=== PATIENT | male | born 1965 | race Caucasian/White ===

== ENCOUNTER 2019-11-21 08:34 | Outpatient (CLI) | payer OTHER, SELFPAY ==
[2019-11-21 08:54] LABS: Hematocrit 48.4 % (42.0-52.0); Hemoglobin 15.2 g/dL (14.0-18.0); Mean Corpuscular HGB Conc 31.4 g/dl (32-36); Mean Corpuscular Hemoglobin 27.3 pg (26-34); Mean Corpuscular Volume 86.9 fl (80-100); Mean Platelet Volume 10.7 fl (7.4-10.4); Platelet Count Result 283 k/mm3 (150-375); Red Blood Count 5.57 M/mm3 (4.6-6.20); Red Cell Distribution Width 17.9 % (11.5-14.5); White Blood Count 6.5 K/mm3 (4.5-10.0)
[2019-11-21 08:56] LABS: Add Urine Microscopic? NO; Appearance Urine Clear (Clear); Bilirubin Urine Negative (Negative); Blood Urine Negative (Negative); Color Urine Yellow (Yellow); Glucose Urine UA Negative (Negative); Ketones Urine Negative (Negative); Leukocyte Esterase Ur Negative LEU/UL (Negative); Nitrate Urine Negative (Negative); Protein Urine Negative (Negative); Urobilinogen Urine Negative mg/dL (<2.0)
[2019-11-21 09:05] LABS: Alanine Aminotransferase 43 U/L (4-50); Albumin Level 4.2 g/dL (3.5-5.1); Alkaline Phosphatase 63 U/L (38-126); Aspartate Amino Transferase 33 U/L (17-59); Bilirubin,Total 0.6 mg/dL (0.2-1.3); Blood Urea Nitrogen 16 mg/dL (9-20); CRP 0.7 mg/dL (<1.0); Calcium 8.8 mg/dL (8.4-10.2); Carbon Dioxide 29 mmol/L (22-30); Chloride 98 mmol/L (98-107); Estimated Glomerular Filt Rate > 60; Glucose 192 mg/dL (75-110); Potassium 4.5 mmol/L (3.4-5.0); Sodium 135 mmol/L (137-145)
== END 2019-11-21 08:35 | disposition home or self-care (01) ==
PROVIDERS: PCP Internal Medicine; Visit Provider Internal Medicine
DX: M05.79 Rheumatoid arthritis with rheumatoid factor of multiple sites without organ or systems involvement (principal); M19.90 Unspecified osteoarthritis, unspecified site
CPT/HCPCS: 36415; 80053; 81003; 85027; 86140

== ENCOUNTER 2020-01-20 00:28 | Outpatient (CLI) | payer OTHER, SELFPAY ==
[2020-01-20 18:58] LABS: SARS-CoV-2 RNA PCR Negative
== END 2020-01-20 00:29 | disposition home or self-care (01) ==
LOC: ANHCOVIDDT 00:30
PROVIDERS: PCP Internal Medicine; Visit Provider Internal Medicine Gastroenterology
DX: Z01.818 Encounter for other preprocedural examination (principal)
CPT/HCPCS: 87635; C9803; U0003

== ENCOUNTER 2020-01-22 01:42 | Day surgery (SDC) | payer OTHER, SELFPAY ==
[2020-01-12 13:34] VITALS: BMI 43.8
[2020-01-22] MEDS: LACTATED RINGERS 1,000 ML 150 ML IV CONT (06:42)
[2020-01-22 06:44] VITALS: BP 125/105; PULSE 93; RESP 22; TEMP 36.9; O2SAT 90; BMI 46.5
[2020-01-22 07:28] LABS: Glucose Point of Care 196 (65-105)
[2020-01-22] MEDS: SIMETHICONE ORAL SUSPENSION 20 MG/0.3 ML 30 ML BOTTLE 0.6 ML IRRIGATION (07:52)
--- NOTE | 2020-01-22 07:57 | WPDGICN ---
Assessment and Plan Assessment and plan (1) History of colon polyps: Code(s): Z86.010 - Personal history of colonic polyps Status: Acute Assessment and Plan: Patient has a history of colon polyps 5 years ago. Plan is for colonoscopy to follow up at this time. High-fiber diet encourage. Other recommendations may be given after endoscopy. (2) Rheumatoid arthritis with rheumatoid factor of multiple sites without organ or systems involvement: Code(s): M05.79 - Rheumatoid arthritis with rheumatoid factor of multiple sites without organ or systems involvement Status: Acute (3) Diabetes type 2, controlled: Qualifiers: Diabetes mellitus intermodal dispatcher insulin use: with intermodal dispatcher use Diabetes mellitus complication status: with unspecified complications Qualified Code(s): E11.8 - Type 2 diabetes mellitus with unspecified complications; Z79.4 - buttermilk drier operator (current) use of insulin Code(s): E11.9 - Type 2 diabetes mellitus without complications Status: Acute (4) HTN (hypertension): Qualifiers: Hypertension type: essential hypertension Qualified Code(s): I10 - Essential (primary) hypertension Code(s): I10 - Essential (primary) hypertension Status: Acute GI Consult Note Consult date/time: 01/22/20 07:57 HPI: Pro Graves is a 54 year old male Seen in evaluation at the request of Dr. Margarito Brown. Patient is a history of colon polyps identified by colonoscopy 5 years ago. He returns today for follow-up colonoscopy. Current weight appetite bowel movements are normal. He denies abdominal pain. He has had no blood in his stools. His weight appetite bowel movements are normal. Family history is noncontributory. Past medical history is significant for GERD, hypertension, rheumatoid arthritis. [facility] Past Medical History Medical History Depression Generalized osteoarthritis of multiple sites GERD (gastroesophageal reflux disease) HTN (hypertension) Rheumatoid arthritis with rheumatoid factor of multiple sites without organ or systems involvement Right elbow pain Surgical History Surgical History History of carpal tunnel release Family History Family History Grandparent Diabetes mellitus Sibling Patient's sister is in good health Patient's brother is , Onset Age: 26 Family history of chronic obstructive pulmonary disease Family history of emphysema Mother Family history of chronic obstructive pulmonary disease, Onset Age: 63 Family history of emphysema, Onset Age: 63 Social History Social History Smoking status: Former smoker Second hand tobacco smoke exposure: No Smoking end date: 08/13/04 Alcohol intake: current Meds Home Medications and Allergies Home Medications Medication Instructions Recorded Confirmed Type hydrochlorothiazide 12.5 mg tablet 12.5 mg PO DAILY #30 tablet 07/07/19 01/22/20 Rx aspirin 325 mg tablet 325 mg PO DAILY tablet 07/08/19 01/22/20 History blood-glucose meter #1 each 07/08/19 Rx insulin glargine 100 unit/mL (3 80 unit SUB-Q DAILY 07/08/19 01/22/20 History mL) subcutaneous pen metformin 500 mg tablet 1,000 mg PO BID tablet 07/08/19 01/22/20 History multivitamin 1 tablet PO DAILY 07/08/19 01/12/20 History insulin aspart U-100 100 unit/mL 10 unit SUB-Q TID 07/09/19 01/22/20 History (3 mL) subcutaneous pen felodipine 5 mg tablet,extended 5 mg PO DAILY #90 tablet 08/29/19 01/22/20 Rx release 24 hr lisinopril 20 mg tablet 40 mg PO DAILY #90 tablet 08/29/19 01/22/20 Rx omeprazole 20 mg tablet,delayed 20 mg PO DAILY #90 tablet 08/29/19 01/12/20 Rx release etanercept 50 mg/mL (1 mL) 50 mg SUB-Q WEEKLY #4 ml 09/01/19 01/22/20 Rx subcutaneous cartridge
[2020-01-22 08:02] VITALS: BP 113/64; PULSE 83; RESP 20; O2SAT 100
[2020-01-22 08:12] VITALS: BP 133/89; PULSE 77; RESP 23; O2SAT 100
[2020-01-22 08:18] LABS: Glucose Point of Care 182 (65-105)
[2020-01-22 08:22] VITALS: BP 136/85; PULSE 72; RESP 25; O2SAT 94
== END 2020-01-22 08:41 | disposition home or self-care (01) ==
PROVIDERS: PCP Internal Medicine; Visit Provider Internal Medicine Gastroenterology
PROC: 0DJD8ZZ Inspection of Lower Intestinal Tract, Via Natural or Artificial Opening Endoscopic (ICD-10-PCS; CPT 45378; principal; 2020-01-22 07:30)
DX: Z12.11 Encounter for screening for malignant neoplasm of colon (principal); K64.8 Other hemorrhoids; Z86.010 Personal history of colon polyps; M05.79 Rheumatoid arthritis with rheumatoid factor of multiple sites without organ or systems involvement; E11.9 Type 2 diabetes mellitus without complications; I10 Essential (primary) hypertension; M19.90 Unspecified osteoarthritis, unspecified site; K21.9 Gastro-esophageal reflux disease without esophagitis; F32.9 Major depressive disorder, single episode, unspecified; Z87.891 Personal history of nicotine dependence; Z79.82 Long term (current) use of aspirin; Z79.84 Long term (current) use of oral hypoglycemic drugs; Z79.4 Long term (current) use of insulin
CPT/HCPCS: 45378; J2704; J7120

== ENCOUNTER 2020-02-17 07:59 | Outpatient (CLI) | payer OTHER, SELFPAY ==
[2020-02-17 08:16] LABS: Hematocrit 48.2 % (42.0-52.0); Hemoglobin 15.6 g/dL (14.0-18.0); Mean Corpuscular HGB Conc 32.4 g/dl (32-36); Mean Corpuscular Hemoglobin 28.5 pg (26-34); Mean Platelet Volume 10.6 fl (7.4-10.4); Platelet Count Result 275 k/mm3 (150-375); Red Blood Count 5.48 M/mm3 (4.6-6.20); Red Cell Distribution Width 15.9 % (11.5-14.5)
[2020-02-17 08:19] LABS: Add Urine Microscopic? YES; Appearance Urine Clear (Clear); Bilirubin Urine Negative (Negative); Blood Urine Negative (Negative); Color Urine Yellow (Yellow); Glucose Urine UA Negative (Negative); Ketones Urine Negative (Negative); Leukocyte Esterase Ur Negative LEU/UL (Negative); Mucus Urine Rare /lpf; Nitrate Urine Negative (Negative); Protein Urine 1+ mg/dL (Negative); RBC Urine 0-2 /hpf (0-2); Specific Grav Ur 1.018 (1.001-1.035); Squamous Epithelial Cell Urine Rare /hpf (Few); Urobilinogen Urine Negative mg/dL (<2.0); WBC Urine 0-3 /hpf
[2020-02-17 08:59] LABS: Erythrocyte Sedimentation Rate 2 mm/hr (0-20)
[2020-02-17 09:03] LABS: Alanine Aminotransferase 39 U/L (4-50); Albumin Level 4.1 g/dL (3.5-5.1); Alkaline Phosphatase 68 U/L (38-126); Aspartate Amino Transferase 34 U/L (17-59); Bilirubin,Total 0.4 mg/dL (0.2-1.3); Blood Urea Nitrogen 16 mg/dL (9-20); CRP 1.3 mg/dL (<1.0); Calcium 8.7 mg/dL (8.4-10.2); Carbon Dioxide 27 mmol/L (22-30); Chloride 101 mmol/L (98-107); Estimated Glomerular Filt Rate > 60; Glucose 181 mg/dL (75-110); Potassium 4.7 mmol/L (3.4-5.0); Sodium 135 mmol/L (137-145)
== END 2020-02-17 08:00 | disposition home or self-care (01) ==
LOC: ANHLAB 08:00
PROVIDERS: PCP Internal Medicine; Visit Provider Internal Medicine
DX: M05.79 Rheumatoid arthritis with rheumatoid factor of multiple sites without organ or systems involvement (principal); M19.90 Unspecified osteoarthritis, unspecified site
CPT/HCPCS: 36415; 80053; 81001; 85027; 85652; 86140

== ENCOUNTER 2020-06-05 07:01 | Outpatient (CLI) | payer OTHER, SELFPAY ==
[2020-06-05 07:33] LABS: Alanine Aminotransferase 28 U/L (4-50); Albumin Level 4.1 g/dL (3.5-5.1); Alkaline Phosphatase 50 U/L (38-126); Anion Gap 9 mmol/L (8-16); Aspartate Amino Transferase 29 U/L (17-59); Bilirubin,Total 0.8 mg/dL (0.2-1.3); Blood Urea Nitrogen 18 mg/dL (9-20); CRP 0.8 mg/dL (<1.0); Calcium 9.3 mg/dL (8.4-10.2); Carbon Dioxide 28 mmol/L (22-30); Chloride 101 mmol/L (98-107); Estimated Glomerular Filt Rate > 60; Glucose 105 mg/dL (75-110); Potassium 4.6 mmol/L (3.4-5.0); Sodium 138 mmol/L (137-145)
[2020-06-05 07:37] LABS: Hematocrit 49.4 % (42.0-52.0); Mean Corpuscular HGB Conc 32.4 g/dl (32-36); Mean Corpuscular Hemoglobin 28.4 pg (26-34); Mean Corpuscular Volume 87.7 fl (80-100); Mean Platelet Volume 11.2 fl (7.4-10.4); Platelet Count Result 292 k/mm3 (150-375); Red Blood Count 5.63 M/mm3 (4.6-6.20); Red Cell Distribution Width 15.6 % (11.5-14.5); White Blood Count 6.5 K/mm3 (4.5-10.0)
[2020-06-05 07:49] LABS: Add Urine Microscopic? NO; Appearance Urine Clear (Clear); Bilirubin Urine Negative (Negative); Blood Urine Negative (Negative); Color Urine Yellow (Yellow); Glucose Urine UA Negative (Negative); Ketones Urine Negative (Negative); Leukocyte Esterase Ur Negative LEU/UL (Negative); Nitrate Urine Negative (Negative); Protein Urine Negative (Negative); Specific Grav Ur 1.018 (1.001-1.035); Urobilinogen Urine Negative mg/dL (<2.0)
[2020-06-05 09:10] LABS: Erythrocyte Sedimentation Rate 1 mm/hr (0-20)
== END 2020-06-05 07:02 | disposition home or self-care (01) ==
PROVIDERS: PCP Internal Medicine; Visit Provider Internal Medicine
DX: M05.79 Rheumatoid arthritis with rheumatoid factor of multiple sites without organ or systems involvement (principal); M19.90 Unspecified osteoarthritis, unspecified site
CPT/HCPCS: 36415; 80053; 81003; 85027; 85652; 86140

== ENCOUNTER 2020-07-03 07:11 | Outpatient (CLI) | payer OTHER, SELFPAY ==
[2020-07-03 07:55] LABS: Mean Corpuscular HGB Conc 33.3 g/dl (32-36); Mean Corpuscular Hemoglobin 29.3 pg (26-34); Mean Corpuscular Volume 87.8 fl (80-100); Mean Platelet Volume 11.4 fl (7.4-10.4); Platelet Count Result 266 k/mm3 (150-375); Red Blood Count 5.47 M/mm3 (4.6-6.20); Red Cell Distribution Width 15.5 % (11.5-14.5); White Blood Count 7.3 K/mm3 (4.5-10.0)
[2020-07-03 08:05] LABS: Hemoglobin A1C 6.3 % (<5.7)
[2020-07-03 08:13] LABS: Alanine Aminotransferase 31 U/L (4-50); Albumin Level 4.2 g/dL (3.5-5.1); Alkaline Phosphatase 57 U/L (38-126); Anion Gap 9 mmol/L (8-16); Aspartate Amino Transferase 29 U/L (17-59); Bilirubin,Total 0.7 mg/dL (0.2-1.3); Blood Urea Nitrogen 19 mg/dL (9-20); Calcium 9.4 mg/dL (8.4-10.2); Carbon Dioxide 29 mmol/L (22-30); Chloride 100 mmol/L (98-107); Cholesterol 139 mg/dL (0-200); Estimated Glomerular Filt Rate > 60; Glucose 121 mg/dL (75-110); HDL Direct 40 mg/dL; Magnesium 2.1 mg/dL (1.6-2.3); Potassium 4.4 mmol/L (3.4-5.0); Sodium 138 mmol/L (137-145); Triglycerides 124 mg/dL (<150)
[2020-07-03 08:24] LABS: LDL Cholesterol Direct 80 mg/dL
[2020-07-03 08:42] LABS: Prostate Specific Antigen 0.4 ng/mL (< OR = 4.0)
[2020-07-03 09:17] LABS: Folic Acid 19.4 ng/mL (2.76->20)
[2020-07-03 10:51] LABS: Creatinine Urine 219.1 mg/dL
[2020-07-03 10:54] LABS: MALB Creatinine Ratio 9.4 mg/g (0-30); Microalbumin Urine Random 20.7 mg/L (0-16.7)
== END 2020-07-03 07:12 | disposition home or self-care (01) ==
PROVIDERS: PCP Internal Medicine; Visit Provider Physician Assistant
DX: E11.9 Type 2 diabetes mellitus without complications (principal); I10 Essential (primary) hypertension; Z12.5 Encounter for screening for malignant neoplasm of prostate; R53.83 Other fatigue
CPT/HCPCS: 36415; 80053; 80061; 82043; 82607; 82746; 83036; 83735; 84153; 84443; 85027

== ENCOUNTER 2020-10-09 07:05 | Outpatient (CLI) | payer OTHER, SELFPAY ==
[2020-10-09 07:32] LABS: Hematocrit 45.8 % (42.0-52.0); Hemoglobin 15.4 g/dL (14.0-18.0); Mean Corpuscular HGB Conc 33.6 g/dl (32-36); Mean Corpuscular Hemoglobin 30.4 pg (26-34); Mean Corpuscular Volume 90.5 fl (80-100); Mean Platelet Volume 10.8 fl (7.4-10.4); Platelet Count Result 267 k/mm3 (150-375); Red Blood Count 5.06 M/mm3 (4.6-6.20); White Blood Count 8.5 K/mm3 (4.5-10.0)
[2020-10-09 07:57] LABS: Alanine Aminotransferase 15 U/L (4-50); Albumin Level 4.2 g/dL (3.5-5.1); Alkaline Phosphatase 57 U/L (38-126); Anion Gap 8 mmol/L (8-16); Aspartate Amino Transferase 21 U/L (17-59); Bilirubin,Total 0.8 mg/dL (0.2-1.3); Blood Urea Nitrogen 19 mg/dL (9-20); CRP 1.2 mg/dL (<1.0); Calcium 9.4 mg/dL (8.4-10.2); Carbon Dioxide 27 mmol/L (22-30); Chloride 103 mmol/L (98-107); Estimated Glomerular Filt Rate > 60; Glucose 122 mg/dL (75-110); Potassium 4.4 mmol/L (3.4-5.0); Sodium 138 mmol/L (137-145)
[2020-10-09 07:58] LABS: Add Urine Microscopic? NO; Appearance Urine Clear (Clear); Bacteria Urine Trace /hpf; Bilirubin Urine Negative (Negative); Blood Urine Negative (Negative); Color Urine Yellow (Yellow); Glucose Urine UA Negative (Negative); Ketones Urine Negative (Negative); Leukocyte Esterase Ur Negative LEU/UL (Negative); Mucus Urine Rare /lpf; Nitrate Urine Negative (Negative); Protein Urine Negative (Negative); RBC Urine 0-2 /hpf (0-2); Specific Grav Ur 1.018 (1.001-1.035); Urobilinogen Urine Negative mg/dL (<2.0); WBC Urine 0-3 /hpf
== END 2020-10-09 07:06 | disposition home or self-care (01) ==
LOC: ANHLAB 07:06
PROVIDERS: PCP Internal Medicine; Visit Provider Internal Medicine
DX: M05.79 Rheumatoid arthritis with rheumatoid factor of multiple sites without organ or systems involvement (principal); M15.9 Polyosteoarthritis, unspecified; M25.521 Pain in right elbow
CPT/HCPCS: 36415; 80053; 81003; 85027; 86140

== ENCOUNTER 2020-10-11 06:55 | Outpatient (CLI) | payer OTHER, SELFPAY ==
[2020-10-14 01:55] LABS: NIL 0.03 IU/mL; Quantiferon TB Plus, 1T NEGATIVE (NEGATIVE)
== END 2020-10-11 06:56 | disposition home or self-care (01) ==
PROVIDERS: PCP Internal Medicine; Visit Provider Internal Medicine
DX: M05.79 Rheumatoid arthritis with rheumatoid factor of multiple sites without organ or systems involvement (principal); M25.521 Pain in right elbow; M15.9 Polyosteoarthritis, unspecified
CPT/HCPCS: 36415; 86480

== ENCOUNTER 2020-12-25 07:06 | Outpatient (CLI) | payer OTHER, SELFPAY ==
[2020-12-25 07:45] LABS: Basophils Percent Auto 0.6 % (0.2-1.2); Eosinophils Absolute Auto 0.3 K/mm3 (0-0.3); Eosinophils Percent Auto 4.4 % (0-4.4); Hematocrit 46.5 % (42.0-52.0); Hemoglobin 15.6 g/dL (14.0-18.0); Immature Granulocyte Absolute 0.02 K/mm3 (0.00-0.031); Immature Granulocyte Percent A 0.3 % (0-0.5); Lymphocytes Absolute Auto 2.35 K/mm3 (0.9-3.2); Lymphocytes Percent Auto 33.1 % (18.3-44.2); Mean Corpuscular HGB Conc 33.5 g/dl (32-36); Mean Corpuscular Hemoglobin 30.6 pg (26-34); Mean Corpuscular Volume 91.2 fl (80-100); Mean Platelet Volume 10.5 fl (7.4-10.4); Monocytes Absolute Auto 0.6 K/mm3 (0.1-0.6); Monocytes Percent Auto 8.6 % (2.6-8.5); Neutrophils Absolute Auto 3.8 K/mm3 (1.3-6.7); Platelet Count Result 278 k/mm3 (150-375); Red Cell Distribution Width 13.7 % (11.5-14.5); White Blood Count 7.1 K/mm3 (4.5-10.0)
[2020-12-25 08:19] LABS: Hemoglobin A1C 6.1 % (<5.7)
== END 2020-12-25 07:07 | disposition home or self-care (01) ==
PROVIDERS: PCP Internal Medicine; Visit Provider Internal Medicine
DX: E11.8 Type 2 diabetes mellitus with unspecified complications (principal); Z79.4 Long term (current) use of insulin
CPT/HCPCS: 36415; 83036; 85025

== ENCOUNTER 2021-02-26 06:44 | Outpatient (CLI) | payer OTHER, SELFPAY ==
[2021-02-26 07:27] LABS: Hematocrit 45.5 % (42.0-52.0); Hemoglobin 15.4 g/dL (14.0-18.0); Mean Corpuscular HGB Conc 33.8 g/dl (32-36); Mean Corpuscular Hemoglobin 31.6 pg (26-34); Mean Corpuscular Volume 93.4 fl (80-100); Platelet Count Result 270 k/mm3 (150-375); Red Blood Count 4.87 M/mm3 (4.6-6.20); Red Cell Distribution Width 13.6 % (11.5-14.5); White Blood Count 7.4 K/mm3 (4.5-10.0)
[2021-02-26 07:29] LABS: Add Urine Microscopic? NO; Appearance Urine Clear (Clear); Bilirubin Urine Negative (Negative); Blood Urine Negative (Negative); Color Urine Yellow (Yellow); Glucose Urine UA Negative (Negative); Ketones Urine Negative (Negative); Leukocyte Esterase Ur Negative LEU/UL (Negative); Nitrate Urine Negative (Negative); Protein Urine Negative (Negative); Specific Grav Ur 1.008 (1.001-1.035); Urobilinogen Urine Negative mg/dL (<2.0)
[2021-02-26 07:41] LABS: Alanine Aminotransferase 18 U/L (4-50); Albumin Level 4.2 g/dL (3.5-5.1); Alkaline Phosphatase 59 U/L (38-126); Anion Gap 8 mmol/L (8-16); Aspartate Amino Transferase 24 U/L (17-59); Bilirubin,Total 0.8 mg/dL (0.2-1.3); Blood Urea Nitrogen 8 mg/dL (9-20); CRP < 0.5 mg/dL (<1.0); Calcium 9.3 mg/dL (8.4-10.2); Carbon Dioxide 28 mmol/L (22-30); Chloride 98 mmol/L (98-107); Estimated Glomerular Filt Rate > 60; Glucose 102 mg/dL (65-110); Potassium 4.2 mmol/L (3.4-5.0); Sodium 134 mmol/L (137-145)
[2021-02-26 10:29] LABS: Erythrocyte Sedimentation Rate 7 mm/hr (0-20)
== END 2021-02-26 06:45 | disposition home or self-care (01) ==
LOC: ANHLAB 06:45
PROVIDERS: PCP Internal Medicine; Visit Provider Internal Medicine
DX: M05.79 Rheumatoid arthritis with rheumatoid factor of multiple sites without organ or systems involvement (principal); M19.90 Unspecified osteoarthritis, unspecified site
CPT/HCPCS: 36415; 80053; 81003; 85027; 85652; 86140

== ENCOUNTER 2021-03-22 06:42 | Outpatient (CLI) | payer OTHER, SELFPAY ==
[2021-03-23 06:51] LABS: Rapid Plasma Reagin Non-Reactive (NonReactive)
[2021-03-24 16:04] LABS: HIV 1 2 Ag Ab 4th Gen w Rflxs Non-reactive (Non-reactive)
== END 2021-03-22 06:43 | disposition home or self-care (01) ==
PROVIDERS: PCP Internal Medicine; Visit Provider Internal Medicine
DX: Z11.3 Encounter for screening for infections with a predominantly sexual mode of transmission (principal)
CPT/HCPCS: 36415; 86592; 87389

== ENCOUNTER 2021-07-09 07:04 | Outpatient (CLI) | payer OTHER, SELFPAY ==
[2021-07-09 07:51] LABS: Alanine Aminotransferase 17 U/L (4-50); Albumin Level 4.2 g/dL (3.5-5.1); Alkaline Phosphatase 53 U/L (38-126); Anion Gap 4 mmol/L (8-16); Aspartate Amino Transferase 21 U/L (17-59); Bilirubin,Total 0.4 mg/dL (0.2-1.3); Blood Urea Nitrogen 22 mg/dL (9-20); Carbon Dioxide 30 mmol/L (22-30); Chloride 99 mmol/L (98-107); Estimated Glomerular Filt Rate > 60; Glucose 114 mg/dL (65-110); Potassium 4.3 mmol/L (3.4-5.0); Sodium 133 mmol/L (137-145)
[2021-07-09 08:01] LABS: Basophils Percent Auto 0.3 % (0.2-1.2); Eosinophils Absolute Auto 0.7 K/mm3 (0-0.3); Eosinophils Percent Auto 8.2 % (0-4.4); Hematocrit 45.7 % (42.0-52.0); Hemoglobin 15.6 g/dL (14.0-18.0); Immature Granulocyte Absolute 0.02 K/mm3 (0.00-0.031); Immature Granulocyte Percent A 0.3 % (0-0.5); Lymphocytes Percent Auto 27.7 % (18.3-44.2); Mean Corpuscular HGB Conc 34.1 g/dl (32-36); Mean Corpuscular Hemoglobin 31.6 pg (26-34); Mean Corpuscular Volume 92.7 fl (80-100); Monocytes Absolute Auto 0.4 K/mm3 (0.1-0.6); Monocytes Percent Auto 4.8 % (2.6-8.5); Neutrophils Absolute Auto 4.7 K/mm3 (1.3-6.7); Neutrophils Percent Auto 58.7 % (45.5-73.1); Platelet Count Result 310 k/mm3 (150-375); Red Blood Count 4.93 M/mm3 (4.6-6.20); Red Cell Distribution Width 13.6 % (11.5-14.5)
[2021-07-09 08:07] LABS: Microalbumin Urine Random < 6.0 mg/L (0-16.7)
[2021-07-09 08:08] LABS: MALB Creatinine Ratio < 7.5 mg/g (0-30)
[2021-07-09 08:19] LABS: Prostate Specific Antigen 0.4 ng/mL (< OR = 4.0)
[2021-07-14 16:18] LABS: Testosterone Free 51.3 pg/mL (35.0-155.0); Testosterone Total 276 ng/dL (250-1100)
== END 2021-07-09 07:05 | disposition home or self-care (01) ==
LOC: ANHLAB 07:06
PROVIDERS: PCP Internal Medicine; Visit Provider Internal Medicine
DX: Z00.00 Encounter for general adult medical examination without abnormal findings (principal); E11.8 Type 2 diabetes mellitus with unspecified complications; Z79.4 Long term (current) use of insulin; R53.83 Other fatigue
CPT/HCPCS: 36415; 80053; 82043; 83036; 84153; 84402; 84403; 84443; 85025; G0103

== ENCOUNTER 2021-12-13 09:54 | Outpatient (CLI) | payer OTHER, SELFPAY ==
[2021-12-13 10:13] LABS: Appearance Urine Clear (Clear); Bilirubin Urine Negative (Negative); Blood Urine Negative (Negative); Color Urine Yellow (Yellow); Glucose Urine UA Negative (Negative); Ketones Urine Negative (Negative); Leukocyte Esterase Ur Negative LEU/UL (Negative); Nitrate Urine Negative (Negative); Protein Urine Negative (Negative); Urobilinogen Urine 0.2 mg/dL (<2.0)
[2021-12-13 10:14] LABS: Hematocrit 46.9 % (42.0-52.0); Hemoglobin 15.3 g/dL (14.0-18.0); Mean Corpuscular HGB Conc 32.6 g/dl (32-36); Mean Corpuscular Hemoglobin 29.9 pg (26-34); Mean Corpuscular Volume 91.8 fl (80-100); Mean Platelet Volume 9.5 fl (7.4-10.4); Platelet Count Result 391 k/mm3 (150-375); Red Blood Count 5.11 M/mm3 (4.6-6.20); Red Cell Distribution Width 12.4 % (11.5-14.5); White Blood Count 11.8 K/mm3 (4.5-10.0)
[2021-12-13 10:15] LABS: RBC Urine 0-2 /hpf (0-2); WBC Urine 0-3 /hpf
[2021-12-13 10:17] LABS: Add Urine Microscopic? YES
[2021-12-13 10:26] LABS: Alanine Aminotransferase 18 U/L (4-50); Albumin Level 4.4 g/dL (3.5-5.1); Alkaline Phosphatase 53 U/L (38-126); Anion Gap 9 mmol/L (8-16); Aspartate Amino Transferase 22 U/L (17-59); Bilirubin,Total 0.4 mg/dL (0.2-1.3); Blood Urea Nitrogen 21 mg/dL (9-20); CRP < 0.5 mg/dL (<1.0); Carbon Dioxide 26 mmol/L (22-30); Chloride 99 mmol/L (98-107); Estimated Glomerular Filt Rate > 60; Glucose 99 mg/dL (65-110); Potassium 4.4 mmol/L (3.4-5.0); Sodium 134 mmol/L (137-145)
[2021-12-13 10:38] LABS: Erythrocyte Sedimentation Rate 9 mm/hr (0-20)
== END 2021-12-13 09:55 | disposition home or self-care (01) ==
PROVIDERS: PCP Internal Medicine; Visit Provider Internal Medicine
DX: M05.79 Rheumatoid arthritis with rheumatoid factor of multiple sites without organ or systems involvement (principal); M19.90 Unspecified osteoarthritis, unspecified site
CPT/HCPCS: 36415; 80053; 81001; 85027; 85652; 86140

== ENCOUNTER 2022-01-19 07:05 | Outpatient (CLI) | payer OTHER, SELFPAY ==
[2022-01-19 08:05] LABS: Basophils Percent Auto 0.2 % (0.2-1.2); Eosinophils Absolute Auto 0.9 K/mm3 (0-0.3); Eosinophils Percent Auto 11.3 % (0-4.4); Hematocrit 44.2 % (42.0-52.0); Immature Granulocyte Absolute 0.03 K/mm3 (0.00-0.031); Immature Granulocyte Percent A 0.4 % (0-0.5); Lymphocytes Absolute Auto 2.35 K/mm3 (0.9-3.2); Lymphocytes Percent Auto 29.2 % (18.3-44.2); Mean Corpuscular HGB Conc 33.9 g/dl (32-36); Mean Corpuscular Hemoglobin 30.4 pg (26-34); Mean Corpuscular Volume 89.7 fl (80-100); Mean Platelet Volume 9.7 fl (7.4-10.4); Monocytes Absolute Auto 0.5 K/mm3 (0.1-0.6); Monocytes Percent Auto 6.6 % (2.6-8.5); Neutrophils Absolute Auto 4.2 K/mm3 (1.3-6.7); Neutrophils Percent Auto 52.3 % (45.5-73.1); Platelet Count Result 330 k/mm3 (150-375); Red Blood Count 4.93 M/mm3 (4.6-6.20); Red Cell Distribution Width 14.4 % (11.5-14.5); White Blood Count 8.1 K/mm3 (4.5-10.0)
[2022-01-19 08:16] LABS: Alanine Aminotransferase 21 U/L (6-50); Alkaline Phosphatase 50 U/L (38-126); Anion Gap 5 mmol/L (8-16); Aspartate Amino Transferase 21 U/L (17-59); Bilirubin,Total 0.5 mg/dL (0.2-1.3); Blood Urea Nitrogen 14 mg/dL (9-20); Calcium 8.5 mg/dL (8.4-10.2); Carbon Dioxide 27 mmol/L (22-30); Chloride 103 mmol/L (98-107); Cholesterol 167 mg/dL (0-200); Estimated Glomerular Filt Rate > 60; Glucose 121 mg/dL (65-110); HDL Direct 45 mg/dL; Potassium 4.4 mmol/L (3.4-5.0); Sodium 135 mmol/L (137-145); Triglycerides 133 mg/dL (<150)
[2022-01-19 08:27] LABS: LDL Cholesterol Direct 84 mg/dL
[2022-01-19 08:35] LABS: Hemoglobin A1C 6.5 % (<5.7)
[2022-01-19 09:24] LABS: Creatinine Urine 121.8 mg/dL
[2022-01-19 09:55] LABS: MALB Creatinine Ratio < 4.9 mg/g (0-30); Microalbumin Urine Random < 6.0 mg/L (0-16.7)
== END 2022-01-19 07:06 | disposition home or self-care (01) ==
LOC: ANHLAB 07:06
PROVIDERS: PCP Internal Medicine; Visit Provider Internal Medicine
DX: E11.8 Type 2 diabetes mellitus with unspecified complications (principal); Z51.81 Encounter for therapeutic drug level monitoring; Z79.4 Long term (current) use of insulin; R53.83 Other fatigue
CPT/HCPCS: 36415; 80053; 80061; 82043; 83036; 84443; 85025

== ENCOUNTER 2022-06-05 07:44 | Outpatient (CLI) | payer OTHER, SELFPAY ==
[2022-06-05 08:21] LABS: Basophils Percent Auto 0.3 % (0.2-1.2); Eosinophils Percent Auto 15.2 % (0-4.4); Hematocrit 44.6 % (42.0-52.0); Hemoglobin 14.7 g/dL (14.0-18.0); Immature Granulocyte Absolute 0.04 K/mm3 (0.00-0.031); Immature Granulocyte Percent A 0.6 % (0-0.5); Lymphocytes Absolute Auto 2.39 K/mm3 (0.9-3.2); Lymphocytes Percent Auto 36.4 % (18.3-44.2); Mean Corpuscular Hemoglobin 30.9 pg (26-34); Mean Corpuscular Volume 93.7 fl (80-100); Mean Platelet Volume 10.1 fl (7.4-10.4); Monocytes Absolute Auto 0.3 K/mm3 (0.1-0.6); Neutrophils Absolute Auto 2.9 K/mm3 (1.3-6.7); Neutrophils Percent Auto 43.5 % (45.5-73.1); Platelet Count Result 267 k/mm3 (150-375); Red Blood Count 4.76 M/mm3 (4.6-6.20); Red Cell Distribution Width 14.6 % (11.5-14.5); White Blood Count 6.6 K/mm3 (4.5-10.0)
[2022-06-05 08:32] LABS: Alanine Aminotransferase 19 U/L (6-50); Alkaline Phosphatase 41 U/L (38-126); Anion Gap 12 mmol/L (8-16); Aspartate Amino Transferase 19 U/L (17-59); Bilirubin,Total 0.7 mg/dL (0.2-1.3); Blood Urea Nitrogen 12 mg/dL (9-20); CRP 1.2 mg/dL (<1.0); Calcium 8.7 mg/dL (8.4-10.2); Carbon Dioxide 26 mmol/L (22-30); Chloride 99 mmol/L (98-107); Estimated Glomerular Filt Rate > 60; Glucose 131 mg/dL (65-110); Potassium 4.2 mmol/L (3.4-5.0); Sodium 137 mmol/L (137-145)
[2022-06-05 08:49] LABS: Add Urine Microscopic? NO; Appearance Urine Clear (Clear); Bilirubin Urine Negative (Negative); Blood Urine Negative (Negative); Color Urine Yellow (Yellow); Glucose Urine UA Negative (Negative); Ketones Urine Negative (Negative); Leukocyte Esterase Ur Negative LEU/UL (Negative); Nitrate Urine Negative (Negative); Protein Urine Negative (Negative); Specific Grav Ur 1.014 (1.001-1.035); Urobilinogen Urine Negative mg/dL (<2.0)
[2022-06-05 11:11] LABS: Erythrocyte Sedimentation Rate 5 mm/hr (0-20)
[2022-06-07 12:17] LABS: NIL 0.02 IU/mL; Quantiferon TB Plus, 1T NEGATIVE (NEGATIVE)
== END 2022-06-05 07:45 | disposition home or self-care (01) ==
LOC: ANHLAB 07:45
PROVIDERS: PCP Internal Medicine; Visit Provider Internal Medicine
DX: M19.90 Unspecified osteoarthritis, unspecified site (principal); M05.79 Rheumatoid arthritis with rheumatoid factor of multiple sites without organ or systems involvement
CPT/HCPCS: 36415; 80053; 81003; 84550; 85025; 85652; 86140; 86480

== ENCOUNTER 2022-07-10 07:35 | Outpatient (CLI) | payer OTHER, SELFPAY ==
[2022-07-10 08:23] LABS: Basophils Percent Auto 0.3 % (0.2-1.2); Eosinophils Absolute Auto 1.1 K/mm3 (0-0.3); Eosinophils Percent Auto 17.7 % (0-4.4); Hematocrit 47.7 % (42.0-52.0); Hemoglobin 15.7 g/dL (14.0-18.0); Immature Granulocyte Absolute 0.05 K/mm3 (0.00-0.031); Immature Granulocyte Percent A 0.8 % (0-0.5); Lymphocytes Absolute Auto 1.92 K/mm3 (0.9-3.2); Lymphocytes Percent Auto 31.4 % (18.3-44.2); Mean Corpuscular HGB Conc 32.9 g/dl (32-36); Mean Corpuscular Volume 94.3 fl (80-100); Mean Platelet Volume 9.8 fl (7.4-10.4); Monocytes Absolute Auto 0.4 K/mm3 (0.1-0.6); Monocytes Percent Auto 5.9 % (2.6-8.5); Neutrophils Absolute Auto 2.7 K/mm3 (1.3-6.7); Neutrophils Percent Auto 43.9 % (45.5-73.1); Platelet Count Result 303 k/mm3 (150-375); Red Blood Count 5.06 M/mm3 (4.6-6.20); Red Cell Distribution Width 14.9 % (11.5-14.5); White Blood Count 6.1 K/mm3 (4.5-10.0)
[2022-07-10 09:31] LABS: Hemoglobin A1C 7.6 % (<5.7)
[2022-07-10 10:35] LABS: MALB Creatinine Ratio < 5.0 mg/g (0-30); Microalbumin Urine Random < 6.0 mg/L (0-16.7)
[2022-07-10 18:31] LABS: Alanine Aminotransferase 21 U/L (6-50); Albumin Level 3.8 g/dL (3.5-5.1); Alkaline Phosphatase 47 U/L (38-126); Anion Gap 7 mmol/L (8-16); Aspartate Amino Transferase 27 U/L (17-59); Bilirubin,Total 0.4 mg/dL (0.2-1.3); Blood Urea Nitrogen 20 mg/dL (9-20); Calcium 8.4 mg/dL (8.4-10.2); Carbon Dioxide 28 mmol/L (22-30); Chloride 101 mmol/L (98-107); Cholesterol 160 mg/dL (0-200); Estimated Glomerular Filt Rate > 60; Glucose 125 mg/dL (65-110); HDL Direct 38 mg/dL; Potassium 4.6 mmol/L (3.4-5.0); Sodium 136 mmol/L (137-145); Triglycerides 184 mg/dL (<150)
[2022-07-10 18:57] LABS: LDL Cholesterol Direct 83 mg/dL
[2022-07-10 19:32] LABS: Prostate Specific Antigen 0.3 ng/mL (< OR = 4.0)
[2022-07-10 20:13] LABS: Folic Acid 16.4 ng/mL (2.76->20)
[2022-07-14 16:43] LABS: Testosterone Free 43.9 pg/mL (35.0-155.0); Testosterone Total 245 ng/dL (250-1100)
== END 2022-07-10 07:36 | disposition home or self-care (01) ==
LOC: ANHLAB 07:37
PROVIDERS: PCP Internal Medicine; Visit Provider Internal Medicine
DX: E11.9 Type 2 diabetes mellitus without complications (principal); I10 Essential (primary) hypertension; R53.83 Other fatigue; Z12.5 Encounter for screening for malignant neoplasm of prostate
CPT/HCPCS: 36415; 80053; 80061; 82043; 82607; 82746; 83036; 84153; 84402; 84403; 84443; 85025; G0103

== ENCOUNTER 2022-12-15 07:38 | Outpatient (CLI) | payer OTHER, SELFPAY ==
[2022-12-15 08:05] LABS: Basophils Percent Auto 0.2 % (0.2-1.2); Eosinophils Absolute Auto 1.3 K/mm3 (0-0.3); Eosinophils Percent Auto 13.9 % (0-4.4); Hematocrit 48.1 % (42.0-52.0); Hemoglobin 15.9 g/dL (14.0-18.0); Immature Granulocyte Absolute 0.03 K/mm3 (0.00-0.031); Immature Granulocyte Percent A 0.3 % (0-0.5); Lymphocytes Absolute Auto 3.68 K/mm3 (0.9-3.2); Mean Corpuscular HGB Conc 33.1 g/dl (32-36); Mean Corpuscular Hemoglobin 30.3 pg (26-34); Mean Corpuscular Volume 91.8 fl (80-100); Mean Platelet Volume 9.7 fl (7.4-10.4); Monocytes Absolute Auto 0.4 K/mm3 (0.1-0.6); Neutrophils Absolute Auto 3.8 K/mm3 (1.3-6.7); Neutrophils Percent Auto 41.6 % (45.5-73.1); Platelet Count Result 280 k/mm3 (150-375); Red Blood Count 5.24 M/mm3 (4.6-6.20); Red Cell Distribution Width 13.4 % (11.5-14.5); White Blood Count 9.2 K/mm3 (4.5-10.0)
[2022-12-15 08:06] LABS: Appearance Urine Clear (Clear); Bilirubin Urine Negative (Negative); Blood Urine Negative (Negative); Color Urine Yellow (Yellow); Glucose Urine UA Negative (Negative); Ketones Urine Negative (Negative); Leukocyte Esterase Ur Negative LEU/UL (Negative); Nitrate Urine Negative (Negative); Protein Urine Negative (Negative); Specific Grav Ur 1.019 (1.001-1.035); Urobilinogen Urine 0.2 mg/dL (<2.0); pH Urine 5.5 (5.0-9.0)
[2022-12-15 08:17] LABS: Alanine Aminotransferase 24 U/L (6-50); Albumin Level 4.1 g/dL (3.5-5.1); Alkaline Phosphatase 48 U/L (38-126); Anion Gap 6 mmol/L (8-16); Aspartate Amino Transferase 22 U/L (17-59); Bilirubin,Total 0.7 mg/dL (0.2-1.3); Blood Urea Nitrogen 16 mg/dL (9-20); CRP 1.1 mg/dL (<1.0); Calcium 8.8 mg/dL (8.4-10.2); Carbon Dioxide 29 mmol/L (22-30); Chloride 99 mmol/L (98-107); Estimated Glomerular Filt Rate > 60; Glucose 160 mg/dL (65-110); Potassium 4.5 mmol/L (3.4-5.0); Sodium 134 mmol/L (137-145)
[2022-12-15 08:37] LABS: Add Urine Microscopic? NO
[2022-12-15 08:41] LABS: Erythrocyte Sedimentation Rate 6 mm/hr (0-20)
== END 2022-12-15 07:39 | disposition home or self-care (01) ==
PROVIDERS: PCP Internal Medicine; Visit Provider Internal Medicine
DX: M05.79 Rheumatoid arthritis with rheumatoid factor of multiple sites without organ or systems involvement (principal); M19.90 Unspecified osteoarthritis, unspecified site
CPT/HCPCS: 36415; 80053; 81003; 85025; 85652; 86140

== ENCOUNTER 2023-01-26 07:09 | Outpatient (CLI) | payer OTHER, SELFPAY ==
[2023-01-26 07:40] LABS: Basophils Absolute Auto 0.1 K/mm3 (0.0-0.1); Basophils Percent Auto 0.5 % (0.2-1.2); Eosinophils Absolute Auto 0.9 K/mm3 (0-0.3); Eosinophils Percent Auto 8.3 % (0-4.4); Hematocrit 43.6 % (42.0-52.0); Hemoglobin 13.9 g/dL (14.0-18.0); Immature Granulocyte Absolute 0.06 K/mm3 (0.00-0.031); Immature Granulocyte Percent A 0.5 % (0-0.5); Lymphocytes Absolute Auto 3.18 K/mm3 (0.9-3.2); Lymphocytes Percent Auto 28.4 % (18.3-44.2); Mean Corpuscular HGB Conc 31.9 g/dl (32-36); Mean Corpuscular Hemoglobin 29.1 pg (26-34); Mean Corpuscular Volume 91.4 fl (80-100); Mean Platelet Volume 9.9 fl (7.4-10.4); Monocytes Absolute Auto 1.4 K/mm3 (0.1-0.6); Monocytes Percent Auto 12.4 % (2.6-8.5); Neutrophils Absolute Auto 5.6 K/mm3 (1.3-6.7); Neutrophils Percent Auto 49.9 % (45.5-73.1); Platelet Count Result 387 k/mm3 (150-375); Red Blood Count 4.77 M/mm3 (4.6-6.20); Red Cell Distribution Width 12.6 % (11.5-14.5); White Blood Count 11.2 K/mm3 (4.5-10.0)
[2023-01-26 08:50] LABS: Creatinine Urine 204.6 mg/dL
[2023-01-26 08:55] LABS: MALB Creatinine Ratio 51.3 mg/g (0-30)
[2023-01-26 11:19] LABS: Hemoglobin A1C 8.3 % (<5.7)
[2023-01-26 11:40] LABS: Alanine Aminotransferase 30 U/L (6-50); Albumin Level 4.1 g/dL (3.5-5.1); Alkaline Phosphatase 51 U/L (38-126); Anion Gap 8 mmol/L (8-16); Aspartate Amino Transferase 25 U/L (17-59); Bilirubin,Total 0.5 mg/dL (0.2-1.3); Blood Urea Nitrogen 20 mg/dL (9-20); Calcium 8.3 mg/dL (8.4-10.2); Carbon Dioxide 26 mmol/L (22-30); Chloride 102 mmol/L (98-107); Cholesterol 130 mg/dL (0-200); Estimated Glomerular Filt Rate > 60; Glucose 150 mg/dL (65-110); HDL Direct 34 mg/dL; Potassium 4.1 mmol/L (3.4-5.0); Sodium 136 mmol/L (137-145); Triglycerides 110 mg/dL (<150)
[2023-01-26 11:55] LABS: LDL Cholesterol Direct 65 mg/dL
[2023-01-26 12:46] LABS: Folic Acid 18.2 ng/mL (2.76->20)
== END 2023-01-26 07:10 | disposition home or self-care (01) ==
LOC: ANHLAB 07:10
PROVIDERS: PCP Internal Medicine; Visit Provider Internal Medicine
DX: R53.83 Other fatigue (principal); E13.9 Other specified diabetes mellitus without complications
CPT/HCPCS: 36415; 80053; 80061; 82043; 82607; 82746; 83036; 84443; 85025

== ENCOUNTER 2023-03-14 07:38 | Outpatient (CLI) | payer OTHER, SELFPAY ==
[2023-03-14 08:28] LABS: Basophils Absolute Auto 0.1 K/mm3 (0.0-0.1); Basophils Percent Auto 0.8 % (0.2-1.2); Eosinophils Absolute Auto 0.3 K/mm3 (0-0.3); Eosinophils Percent Auto 3.6 % (0-4.4); Hematocrit 51.5 % (42.0-52.0); Hemoglobin 16.4 g/dL (14.0-18.0); Immature Granulocyte Absolute 0.03 K/mm3 (0.00-0.031); Immature Granulocyte Percent A 0.4 % (0-0.5); Lymphocytes Absolute Auto 3.21 K/mm3 (0.9-3.2); Lymphocytes Percent Auto 42.3 % (18.3-44.2); Mean Corpuscular HGB Conc 31.8 g/dl (32-36); Mean Corpuscular Hemoglobin 27.5 pg (26-34); Mean Corpuscular Volume 86.4 fl (80-100); Mean Platelet Volume 10.7 fl (7.4-10.4); Monocytes Absolute Auto 0.7 K/mm3 (0.1-0.6); Monocytes Percent Auto 9.2 % (2.6-8.5); Neutrophils Absolute Auto 3.3 K/mm3 (1.3-6.7); Neutrophils Percent Auto 43.7 % (45.5-73.1); Platelet Count Result 246 k/mm3 (150-375); Red Blood Count 5.96 M/mm3 (4.6-6.20); Red Cell Distribution Width 14.4 % (11.5-14.5); White Blood Count 7.6 K/mm3 (4.5-10.0)
[2023-03-14 08:35] LABS: Appearance Urine Clear (Clear); Bilirubin Urine Negative (Negative); Blood Urine Negative (Negative); Color Urine Yellow (Yellow); Glucose Urine UA 3+ mg/dL (Negative); Ketones Urine Negative (Negative); Leukocyte Esterase Ur Negative LEU/UL (Negative); Nitrate Urine Negative (Negative); Protein Urine Negative (Negative); Urobilinogen Urine 0.2 mg/dL (<2.0); pH Urine 5.5 (5.0-9.0)
[2023-03-14 08:37] LABS: Alanine Aminotransferase 31 U/L (6-50); Albumin Level 4.4 g/dL (3.5-5.1); Alkaline Phosphatase 62 U/L (38-126); Anion Gap 9 mmol/L (8-16); Aspartate Amino Transferase 28 U/L (17-59); Bilirubin,Total 0.4 mg/dL (0.2-1.3); Blood Urea Nitrogen 13 mg/dL (9-20); CRP 0.7 mg/dL (<1.0); Calcium 8.8 mg/dL (8.4-10.2); Carbon Dioxide 26 mmol/L (22-30); Chloride 102 mmol/L (98-107); Estimated Glomerular Filt Rate > 60; Glucose 152 mg/dL (65-110); Potassium 4.6 mmol/L (3.4-5.0); Sodium 137 mmol/L (137-145)
[2023-03-14 08:44] LABS: Immunoglobulin A 324 mg/dL (70-400); Immunoglobulin G 1423 mg/dL (700-1600); Immunoglobulin M 176 mg/dL (40-230)
[2023-03-14 08:47] LABS: Add Urine Microscopic? NO
[2023-03-14 09:15] LABS: Hemoglobin A1C 8.8 % (<5.7)
[2023-03-14 09:54] LABS: Erythrocyte Sedimentation Rate 1 mm/hr (0-20)
[2023-03-18 02:26] LABS: Immunoglobulin E 5 kU/L (<=114)
[2023-03-20 14:27] LABS: ANCA Screen Negative (Negative)
== END 2023-03-14 07:39 | disposition home or self-care (01) ==
PROVIDERS: PCP Internal Medicine; Visit Provider Internal Medicine
DX: M19.90 Unspecified osteoarthritis, unspecified site (principal); R61 Generalized hyperhidrosis; R53.83 Other fatigue; I10 Essential (primary) hypertension; M05.79 Rheumatoid arthritis with rheumatoid factor of multiple sites without organ or systems involvement; E11.9 Type 2 diabetes mellitus without complications
CPT/HCPCS: 36415; 80053; 81003; 82043; 82784; 82785; 83036; 84443; 85025; 85652; 86036; 86140; 87040

== ENCOUNTER 2023-03-16 08:26 | Outpatient (CLI) | payer OTHER, SELFPAY ==
--- NOTE | 2023-03-27 18:13 | WPDHOMESLEEP ---
Sleep Study - Home Unattended Date of Study: 03/16/23 Ordering Provider: Grant Brown DO Interpreting Provider: Elena Tang DO Home Sleep Study Type: Watch PAT Height: 1.68 m Weight: 120.202 kg Body Mass Index: 42.7 Neck Circumference (inches): 19.75 Freeman: 16 Reason for Sleep Study Loud snoring, daytime hypersomnia Sleep History The patient is a 57-year-old male with Type 2 Diabetes, hypertension, depression, GERD, rheumatoid arthritis, seasonal allergies, COPD, morbid obesity and history of pericarditis that had a sleep study ordered by his primary care physician for evaluation of sleep apnea. The patient occasionally awakens from sleep short of breath. He rarely awakens at night with heartburn, belching or cough. He frequently snores and is frequently loud enough that others complain. He frequently has trouble sleeping when he has a cold. He rarely wakes up gasping for air throughout the night. He frequently has breathing problems at night observed by himself or others. He constantly sweats excessively at night. He rarely has heart palpitations or irregular heartbeats during the night. He frequently falls asleep during the day. He rarely falls asleep while driving. He rarely experiences loss of muscle tone when extremely emotional. He occasionally has trouble at school or work due to sleepiness. He denies feeling unable to move while waking up or falling asleep. He occasionally experiences vivid dreamlike scenes upon awakening or falling asleep. He denies feeling afraid of going to sleep. He occasionally has nightmares. He occasionally remembers his dreams. He occasionally has thoughts racing through his mind. He occasionally feels sad or depressed. He occasionally has anxiety. He frequently has muscular tension. He occasionally notices parts of his body jerk. He occasionally kicks during the night. He occasionally has crawling and aching feelings in his legs but rarely has leg pain during the night. He rarely grinds his teeth during sleep and rarely awakens with morning jaw pain. He is occasionally bothered by pain during the day but rarely awakened by pain during the night. He constantly wakes up feeling stiff in the morning. He occasionally wakes up with sore or achy muscles. He frequently wakes up with pain in the neck, spine or other joints. He goes to bed at 9:00 p.m. on both weekdays and weekends. It takes him 10-30 minutes to fall asleep. He wakes up once or twice throughout the night to urinate and can fall back asleep within 10 minutes. He wakes up at 4:30 a.m. on both weekdays and weekends. He typically gets 6-7 hours of sleep per night. He will stay in bed for 1 hour after waking up in the morning. He currently lives with his . He will consume caffeinated beverages within 2 hours of bedtime. He does not engage in physical exercise before bedtime. He denies reading and watching television before falling asleep. He will take naps in the afternoon or the evening but they are not refreshing. He consumes 2-4 caffeinated beverages per day. He quit smoking cigarettes 18 years ago. He denies alcohol and recreational drug use. [facility] Past Medical History Medical History Bilateral hand pain Depression Generalized osteoarthritis of multiple sites GERD (gastroesophageal reflux disease) HTN (hypertension) Rheumatoid arthritis with rheumatoid factor of multiple sites without organ or systems involvement (~2018) Right elbow pain Surgical History Surgical History History of carpal tunnel release Family History Family History Grandparent Diabetes mellitus Sibling Patient's sister is in good health Patient's brother is , Onset Age: 26 Family history of chronic obstructive pulmonar
[2023-03-27 18:21] VITALS: BMI 42.7
== END 2023-03-19 12:42 | disposition home or self-care (01) ==
LOC: ANHCSM 08:27
PROVIDERS: PCP Internal Medicine; Visit Provider Internal Medicine
DX: G47.10 Hypersomnia, unspecified (principal); G47.30 Sleep apnea, unspecified
CPT/HCPCS: 95800

== ENCOUNTER 2023-08-08 07:56 | Outpatient (CLI) | payer OTHER, SELFPAY ==
--- NOTE | ~2023-08-08 | XR_ITS ---
EXAMINATION: XR chest 2V DATE: 08/08/2023 08:13 INDICATION: Cough and wheezing TECHNIQUE: PA and lateral views of the chest were obtained. COMPARISON: Chest radiograph dated 06/27/2009 FINDINGS: Subtle nodular opacity projecting between the posterior right seventh and eighth ribs. No other airsp sindy opacities, pulmonary edema, pleural effusion or pneumothorax. The cardiomediastinal silhouette is normal. Visualized bones and soft tissues are unremarkable. IMPRESSION: 1. Nodular opacity lateral right midlung zone which could clinical history could be related to pneumo cindy although differential includes malignancy. Consider further evaluation with low-dose noncontrast chest CT. Reviewed, dictated and finalized at location A. SAFETY DIRECTOR IMPRESSION: 1. Nodular opacity lateral right midlung zone which could clinical history coul d be related to pneumonia although differential includes malignancy. Consider f urther evaluation with low-dose noncontrast chest CT.
[2023-08-08 09:32] LABS: Influenza A QL RT-PCR Positive (Negative); Influenza B QL RT-PCR Negative (Negative); RSV RNA, RT-PCR Negative (Negative); SARS-CoV-2 RNA PCR Negative (Negative)
== END 2023-08-08 07:57 | disposition home or self-care (01) ==
PROVIDERS: PCP Internal Medicine; Visit Provider Nurse Practitioner Family
DX: R06.2 Wheezing (principal); R91.8 Other nonspecific abnormal finding of lung field; Z20.822 Contact with and (suspected) exposure to COVID-19
CPT/HCPCS: 71046; 87637

== ENCOUNTER 2023-08-22 09:40 | Outpatient (CLI) | payer OTHER, SELFPAY ==
--- NOTE | ~2023-08-22 | CT_ITS ---
CT Scan of the Chest without Contrast: Clinical Indication: Solitary pulmonary nodule Technique: Contiguous sections were acquired throughout the chest without intravenous contrast. Dose reduction technique was used on this scan by utilizing automated exposure control and iterative recon struction technique. The dose-length product (DLP) was 510.43 mGy-cm. Findings: There is no evidence of any significant mediastinal, hilar or axillary lymphadenopathy. Coronary claudy ry calcifications are present. There is no evidence of pleural or pericardial effusion. 5 mm pleural-based nodule noted the right middle lobe. 5 mm left upper lobe pulmonary nodule noted (a xial image 66). There is minimal groundglass opacity in the left upper lobe/lingula. Images through the upper abdomen reveal diffuse fatty infiltration of the liver. Impression: Subcentimeter pulmonary nodules, as above. According to Fleischner Society criteria, for a low-risk p atient, no further follow-up required. For a high-risk patient, consider [address] Minimal groundglass opacity left upper lobe. Consider pneumonitis. Reviewed, dictated and finalized at location M. CAL ELEMENT COATER Impression: Subcentimeter pulmonary nodules, as above. According to Fleischner Society crit chloé, for a low-risk patient, no further follow-up required. For a high-risk pa tient, consider [address] Minimal groundglass opacity left upper lobe. Consider pneumonitis.
== END 2023-08-22 09:41 | disposition home or self-care (01) ==
PROVIDERS: PCP Internal Medicine; Visit Provider Nurse Practitioner Family
DX: R91.8 Other nonspecific abnormal finding of lung field (principal); R91.1 Solitary pulmonary nodule
CPT/HCPCS: 71250

== ENCOUNTER 2023-12-19 07:20 | Outpatient (CLI) | payer OTHER, SELFPAY ==
[2023-12-19 08:27] LABS: Alanine Aminotransferase 36 U/L (6-50); Albumin Level 4.4 g/dL (3.5-5.1); Alkaline Phosphatase 76 U/L (38-126); Anion Gap 9 mmol/L (4-12); Aspartate Amino Transferase 30 U/L (17-59); Blood Urea Nitrogen 16 mg/dL (9-20); Calcium 9.7 mg/dL (8.4-10.2); Carbon Dioxide 25 mmol/L (22-30); Chloride 103 mmol/L (98-107); Cholesterol 188 mg/dL (0-200); Estimated Glomerular Filt Rate > 60; Glucose 262 mg/dL (65-110); HDL Direct 41 mg/dL; Potassium 4.4 mmol/L (3.4-5.0); Sodium 137 mmol/L (137-145); Triglycerides 280 mg/dL (<150)
[2023-12-19 08:37] LABS: LDL Cholesterol Direct 109 mg/dL
[2023-12-19 08:56] LABS: Prostate Specific Antigen 0.4 ng/mL (< OR = 4.0)
[2023-12-19 09:04] LABS: Creatinine Urine 60.8 mg/dL
[2023-12-19 09:09] LABS: MALB Creatinine Ratio 246.9 mg/g (0-30); Microalbumin Urine Random 150.1 mg/L (0-16.7)
[2023-12-19 09:46] LABS: Hemoglobin A1C 12.7 % (<5.7)
== END 2023-12-19 07:21 | disposition home or self-care (01) ==
LOC: ANHLAB 07:23
PROVIDERS: PCP Internal Medicine; Visit Provider Physician Assistant
DX: Z12.5 Encounter for screening for malignant neoplasm of prostate (principal); E11.9 Type 2 diabetes mellitus without complications
CPT/HCPCS: 36415; 80053; 80061; 82043; 83036; 84153; G0103

== ENCOUNTER 2024-07-18 07:40 | Outpatient (CLI) | payer OTHER, SELFPAY ==
[2024-07-18 08:27] LABS: Alanine Aminotransferase 15 U/L (6-50); Albumin Level 4.2 g/dL (3.5-5.1); Alkaline Phosphatase 61 U/L (38-126); Anion Gap 3 mmol/L (4-12); Aspartate Amino Transferase 19 U/L (17-59); Bilirubin,Total 0.7 mg/dL (0.2-1.3); Blood Urea Nitrogen 18 mg/dL (9-20); Calcium 9.1 mg/dL (8.4-10.2); Carbon Dioxide 28 mmol/L (22-30); Chloride 103 mmol/L (98-107); Estimated Glomerular Filt Rate > 60; Glucose 118 mg/dL (65-110); Potassium 4.5 mmol/L (3.4-5.0); Sodium 134 mmol/L (137-145)
[2024-07-18 10:19] LABS: Hemoglobin A1C 7.1 % (<5.7)
== END 2024-07-18 07:41 | disposition home or self-care (01) ==
LOC: ANHLAB 07:42
PROVIDERS: PCP Internal Medicine; Visit Provider Physician Assistant
DX: E11.9 Type 2 diabetes mellitus without complications (principal)
CPT/HCPCS: 36415; 80053; 83036

== ENCOUNTER 2024-11-19 15:14 | Outpatient (CLI) | payer OTHER, SELFPAY ==
--- NOTE | ~2024-11-19 | XR_ITS ---
EXAMINATION: XR knee RT 3V, XR knee LT 3V DATE: 11/19/2024 15:56 INDICATION: Right knee pain TECHNIQUE: 1. AP, lateral and sunrise views of the right knee were obtained. 2. AP, lateral and sunrise views of the left knee were obtained. COMPARISON: None. FINDINGS: Alignment is normal at both knees. No fracture. Joint spaces appear normal with tiny marginal osteop hytes along the patella. Suggestion of small bilateral knee joint effusions. Soft tissues are otherwi se unremarkable. IMPRESSION: 1. Minimal osteoarthritis at the bilateral knees and possible small bilateral knee joint effusions. Reviewed, dictated and finalized at location B. IMPRESSION: 1. Minimal osteoarthritis at the bilateral knees and possible small bilateral k nee joint effusions.
--- NOTE | ~2024-11-19 | US_ITS ---
Soft tissue neck ULTRASOUND (Doppler ultrasound interrogation techniques used as needed for this exam .) Ordering provider: Melchor Frazier DO History: . R59.1 - Generalized enlarged lymph nodes . Comparison: None. FINDINGS/impression: Bilateral lymph nodes are seen with the largest on the right side measuring 0.6 x 0.8 x 0.7 cm and 1. 3 x 0.7 x 1.2 cm. The left largest lymph nodes measuring 1.1 x 0.7 x 1.3 cm and 1.6 x 0.6 x 1.8 cm. Cystic area seen in the left submandibular gland which measures 0.6 x 0.7 x 0.8 cm. Hypoechoic area is seen on the left of the midline above the thyroid and below the mandible which criselda sures 1.5 x 1 x 1.7 cm. Further evaluation and follow-up advised. Reviewed, dictated and finalized at location A.
== END 2024-11-19 15:15 | disposition home or self-care (01) ==
LOC: MICIMG 15:14
PROVIDERS: PCP Internal Medicine; Visit Provider Internal Medicine
DX: R93.89 Abnormal findings on diagnostic imaging of other specified body structures (principal); R59.1 Generalized enlarged lymph nodes; K11.6 Mucocele of salivary gland; M25.561 Pain in right knee; M25.562 Pain in left knee; G89.29 Other chronic pain
CPT/HCPCS: 73562; 76536

== ENCOUNTER 2024-12-01 08:11 | Outpatient (CLI) | payer OTHER, SELFPAY ==
--- NOTE | ~2024-12-01 | CT_ITS ---
CT scan of the Neck Technique: 2.5 mm axial scans were obtained through the neck without IV contrast administration. Terrence nal and sagittal reconstructions of the neck were obtained. Dose reduction technique was used on this scan by utilizing automated exposure control and iterative reconstruction technique. The dose-length product (DLP) was 421.51 mGy-cm. Clinical History: Palpable lumps bilaterally in the neck, abnormal ultrasound Findings: There is enlarged right level 2 cervical lymph node measuring 2.2 x 1.3 x 3.0 cm in size (axial image 64, coronal image 48). Numerous additional shotty, nonenlarged bilateral cervical lymph nodes are pr esent. No other soft tissue mass or fluid collection seen. Parapharyngeal spaces appear normal bilate rally. The parotid and submandibular glands appear normal. The pharyngeal mucosal spaces appear normal. No soft tissue masses are seen in the neck. The thyroid gland appears normal. Images of the lung apices reveal mild mosaic attenuation pattern. Impression: Enlarged 2.2 x 1.0 3.0 cm right level 2 cervical lymph node, as detailed above. Numerous additional s hotty lymph nodes are not technically enlarged by size criteria. Findings are indeterminate. Consider lymphoma or other metastatic disease, or nonspecific reactive/inflammatory lymphadenitis. Consider t issue sampling of the largest node identified above to establish a histologic diagnosis. Mild mosaic attenuation pattern in the lung apices. Correlate for mild hypoventilatory change versus bronchiolitis, asthma, hypersensitivity pneumonitis, or minimal pulmonary edema. Reviewed, dictated and finalized at [facility]. Impression: Enlarged 2.2 x 1.0 3.0 cm right level 2 cervical lymph node, as detailed above. Numerous additional shotty lymph nodes are not technically enlarged by size cr iteria. Findings are indeterminate. Consider lymphoma or other metastatic disea se, or nonspecific reactive/inflammatory lymphadenitis. Consider tissue samplin g of the largest node identified above to establish a histologic diagnosis. Mild mosaic attenuation pattern in the lung apices. Correlate for mild hypovent ilatory change versus bronchiolitis, asthma, hypersensitivity pneumonitis, or m inimal pulmonary edema.
== END 2024-12-01 08:12 | disposition home or self-care (01) ==
LOC: MICIMG 08:12
PROVIDERS: PCP Internal Medicine; Visit Provider Internal Medicine
DX: R93.89 Abnormal findings on diagnostic imaging of other specified body structures (principal); R59.0 Localized enlarged lymph nodes
CPT/HCPCS: 70490

== ENCOUNTER 2025-02-05 12:23 | Outpatient (CLI) | payer OTHER, SELFPAY ==
--- NOTE | ~2025-02-05 | US_ITS ---
EXAMINATION: US biopsy lymph node DATE: 02/05/2025 14:09 INDICATION: Enlarged right jugular chain lymph node seen on prior CT TECHNIQUE: The procedure including the risks and benefits was discussed with the patient. Risks discu ssed included bleeding and infection. The patient understood the risks and agreed to proceed. The sk in overlying the right neck was prepped and draped in usual sterile fashion. Anesthetic was administ ered with 1% lidocaine subcutaneously. An 18 gauge core biopsy needle was advanced under continuous ultrasound observation to the lesion of interest. 8 core biopsy specimens were obtained, 5 placed in RPMI media and 3 in formalin. The needle was removed and the entry site was cleaned and dressed. P ost procedure ultrasound demonstrated no hemorrhage. FINDINGS: Ultrasound images demonstrate an enlarged 3.6 x 1.5 cm right parotid lymph node positioned along the deep margin of the inferior parotid gland and the anterior margin of the cephalad sternocle idomastoid muscle. IMPRESSION: 1. Successful Ultrasound-guided biopsy of an enlarged 3.6 x 1.5 similar right parotid lymph node. Reviewed, dictated and finalized at location A. IMPRESSION: 1. Successful Ultrasound-guided biopsy of an enlarged 3.6 x 1.5 similar right p arotid lymph node.
--- NOTE | 2025-02-05 14:01 | S_PTH ---
PATIENT: Pro Graves LOC: [facility] U#:[id number] AGE/SX: 59/M ROOM: RE02/05/[address]: Jessy Guzman MD : 1965 BED: DIS: 02/05/2025 SPEC #: [id number] RECD: 02/05/25 14:04 STATUS: BIA REPatricia #: [id number] SARA: 02/05/25 14:[address]: Jessy Guzman DEPT: [facility] Surgical RECD BY: Unique Correia ENTERED: 02/05/25 14:05 SP TYPE: Surgical OTHR DR: Melchor Frazier DO Tissues: A - Lymph Node Biopsy B - Flow Procedures: PAX-8 Unstained Slides Hematoxylin and Eosin Stain Gross and Microscopic Level 4 CK 5 Flow Cytometry
== END 2025-02-05 12:24 | disposition home or self-care (01) ==
PROVIDERS: PCP Internal Medicine; Visit Provider Otolaryngology Otolaryngology/Facial Plastic Surgery
DX: D11.9 Benign neoplasm of major salivary gland, unspecified (principal)
CPT/HCPCS: 38505; 76942; 88184; 88305; 88342

== ENCOUNTER 2025-03-25 02:04 | Day surgery (SDC) | payer OTHER, SELFPAY ==
[2025-03-09 13:01] VITALS: BMI 35.9
--- OUTSIDE RECORDS SUMMARY | 2025-03-25 02:08 | XMS_ITS | Clinical Summary ---
Author Organization [facility] Address [address] [place] [address] Care Team Providers Care Roof Designer Name Role Phone Grant Brown MD Primary Care Provider [phone] Grant Brown MD Unavailable [phone] Allergies Active Allergy Reactions Criticality Noted Date Comments Azithromycin Diarrhea Medium 02/01/2023 Sulfa (Sulfonamide Antibiotics) Hives Medium 07/14 Azithromycin Diarrhea Low 08/09/2022 Medications traMADoL (ULTRAM) 50 mg tablet Take by mouth every 6 (six) hours as needed 05/03/20 22 Active omeprazole (PriLOSEC) 20 mg capsule Take 1 capsule (20 mg total) by mouth daily 05/03/20 22 Active Dexcom G6 Sensor device USE DIRECTED EVERY 10 DAYS 06/20/20 22 Active lisinopriL (PRINIVIL,ZESTRIL ) 40 mg tablet Take 1 tablet (40 mg total) by mouth daily Active sertraline (ZOLOFT) 100 mg tablet Take 1 tablet (100 mg total) by mouth daily Active blood glucose diagnostic strip by other route Active etanercept (ENBREL) 50 mg/mL (1 mL) injection Inject 1 mL (50 mg total) under the skin once Active multivitamin capsule Take 1 capsule by mouth daily Active Dexcom G6 Transmitter device USE TO CHECK BLOOD SUGAR AND REPLACE EVERY 90 DAYS 09/29/19 23 Active fluticasone propionate (FLONASE) 50 mcg/actuation nasal spray 2 SPRAY INTRANASALLY DAILY NEEDED FOR ALLERGY SYMPTOMS ADMINISTER INTO EACH NOSTRIL 09/14/19 23 Active colchicine (COLCRYS) 0.6 mg capsule Take 1 capsule (0.6 mg total) by mouth 2 (two) times a day 90 capsule 01/23/20 23 Active etanercept (ENBREL) 50 mg/mL (1 mL) pen injector Inject 1 mL (50 mg total) under the skin every 7 days Saturdays Active fluticasone propionate (FLONASE) 50 mcg/actuation nasal spray Administer 1 spray into each nostril daily as needed for rhinitis Active ibuprofen (ADVIL,MOTRIN) 600 mg tablet Take 1 tablet (600 mg total) by mouth 3 (three) times a day Active lisinopriL (PRINIVIL,ZESTRIL ) 40 mg tablet Take 1 tablet (40 mg total) by mouth daily Active multivitamin tabletIndications :Vitamin Deficiency Prevention Take 1 tablet by mouth daily Active omeprazole 20 mg tablet,delayed release (DR/EC) Take 1 tablet (20 mg total) by mouth daily Active sertraline (ZOLOFT) 100 mg tablet Take 1 tablet (100 mg total) by mouth daily Active traMADoL (ULTRAM) 50 mg tablet Take 1 tablet (50 mg total) by mouth every 6 (six) hours as needed for pain Active colchicine (COLCRYS) 0.6 mg capsule Take 1 capsule (0.6 mg total) by mouth 2 (two) times a day 60 capsule 1 02/04/20 23 Active albuterol (PROAIR RESPICLICK) 90 mcg/actuation inhaler Inhale 2 puffs every 6 (six) hours as needed for wheezing 1 each 1 02/04/20 23 Active budesonide-formot [place] (SYMBICORT) 160-4.5 mcg/actuation inhaler Inhale 2 puffs 2 (two) times a day Rinse mouth with water after use. Do not swallow. 1 each 2 02/04/20 23 Active ipratropium-albut [place] (DUO-NEB) 0.5-2.5 mg/3 mL nebulizer solutionIndicatio ns:Chronic Obstructive Pulmonary Disease with Bronchospasms Take 3 mL by nebulization every 6 (six) hours as needed for wheezing 30 mL 2 02/04/20 23 Active Active Problems Problem Noted Date Diagnosed Date Pleural effusion 02/01/2023 Pericardial effusion 02/01/2023 Rheumatoid arthritis [facility] with negative rheumatoid factor 02/01/2023 Depression 01/19/2023 Type 2 diabetes mellitus 01/19/2023 GERD (gastroesophageal reflux disease) Primary hypertension 01/19/2023 Rheumatoid arthritis 01/19/2023 Acute idiopathic pericarditis 01/19/2023 Pericardial effusion 01/19/2023 Hypoxemia 01/19/2023 Chest pain on breathing Resolved Problems Problem Noted Date Diagnosed Date Resolved Date Umbilical hernia without obs truction or gangrene 08/09/2022 09/12/2022 Overview (08/09/2022): Added automatically from request for surgery [id number] Assessment & Plan (08/21/2022 3:22 PM KNIFE GRINDER): Primary umbilical hernia, symptomatic with movement and daily activities. Discussed open umbilical hernia repair with or without mesh, to which he is understanding and agreeable. Surgical History Surgery Date Site/Laterality Comments CARPAL TUNNEL RELEASE TONSILLECTOMY HERNIA REPAIR Medical History Medical History Date Comments Type 2 diabetes mellitus Diabetes mellitus (HCC) Hypertension RA (rheumatoid arthritis) Depression GERD (gastroesophageal reflux disease) Family History Medical History Relation Name Comments COPD Brother Emphysema Brother COPD Father Emphysema Father COPD Mother Emphysema Mother Relation Name Status Comments Brother Father Mother Social History Tobacco Use Types Packs/Day Years Used Date Smoking Tobacco: Former Cigarettes Smokeless Tobacco: Never Tobacco Cessation:Counseling Given: No Comments:Quit 18 years ago Social Connection and Isolation Panel Answer Date Recorded In a typical week, how many times do you talk on the phone with family, friends, or neighbors? Twice a week 02/01/2023 How often do you get togethe r with friends or relatives? Never 02/01/2023 How often do you attend chur or oriental orthodox services? More than 4 times per year 02/01/2023 Do you belong to any clubs o r organizations such as yazidism groups, unions, fraternal or athletic groups, or school groups? No 02/01/2023 How often do you attend meet ings of the clubs or organizations you belong to? Never 02/01/2023 Are you , , di vorced, , never , or living with a partner? 02/01/2023 AUDIT-C Answer Date Recorded Q1: How often do you have a drink containing alcohol? Never 02/01/2023 Q2: How many drinks containi ng alcohol do you have on a typical day when you are drinking? Patient does not drink Q3: How often do you have si x or more drinks on one occasion? Never 02/01/2023 Overall Financial Resource Strain (CARDIA) Answe r Date Recorded How hard is it for you to pa y for the very basics like food, housing, medical care, and heating? Not hard at all 02/01/2023 Hunger Vital Sign Answer Date Recorded Within the past 12 months, y ou worried that your food would run out before you got the money to buy more. Never true 02/02/20 23 Within the past 12 months, t he food you bought just didn't last and you didn't have money to get more. Never true 02/01/2023 PRAPARE - Transportation Answer Date Re corded In the past 12 months, has l ack of transportation kept you from medical appointments or from getting medications? No 01/12 In the past 12 months, has l ack of transportation kept you from meetings, work, or from getting things needed for daily living? No 02/01/2023 Housing Stability Vital Sign Answer Rony e Recorded In the last 12 months, was t here a time when you were not able to pay the mortgage or rent on time? No 02/01/2023 In the last 12 months, how many places have you lived? 1 02/01/2023 In the last 12 months, was t here a time when you did not have a steady place to sleep or slept in a penitentiary (including now)? No 02/01/2023 Personal Safety Answer Date Recorded Getting School Help Needed Not on file 02/07 Education Answer Date Recorded What is the highest level of school you have completed or the highest degree you have received? Some college, no degree 02/01/2023 Sex and Gender Information Value Date Recorded Sex Assigned at Not on file Legal Sex Male 7:14 AM KNIFE GRINDER Gender Identity Male 10/04/2022 8:49 AM KNIFE GRINDER Sexual Orientation Not on file Obstetrics History Last Filed Vital Signs Vital Sign Reading Time Taken Comments Blood Pressure 152/97 06/05/2023 2:56 PM CDT Pulse 83 06/05/2023 2:56 PM CDT Temperature 36.1 C (96.9 F) 02/03/2023 11:17 AM CDT Respiratory Rate 18 06/05/2023 2:56 PM CDT Oxygen Saturation 90% 02/03/2023 11:17 AM CDT Inhaled Oxygen Concentration - - Weight 120.2 kg (265 lb) 06/05/2023 2:56 PM CDT Height 167.6 cm (5' 6) 06/05/2023 2:56 PM CDT Body Mass Index 42.77 06/05/2023 2:56 PM CDT Plan of Treatment Health Maintenance Due Date Last Done Comments Albumin Creatinine Ratio, Urine 1965 Colon Cancer Screening-Colonoscopy 1965 Depression Screening 1965 Hemoglobin A1C 1965 Hepatitis C Screening 1965 Prostate Cancer Screening-PSA 1965 Dilated Eye Exam 1965 Foot Exam 1965 Lipid Panel 1964 DTaP/Tdap/Td Vaccine (1 - Tdap) 1975 Hepatitis B Screening 1982 Regular Well Visit/Exam 18-64 1982 eGFR 02/04/2024 02/03/2023, 01/12, 01/31/2023, Additional history exists Covid-19 Vaccine (5 - 2023-2 5 season) 2024 04/28/2022, 10/07/2021, 11/16/2020, Additional history exists Influenza Vaccine (#1) 2025 , 05/16/2021, 05/10/2020, Additional history exists Pneumococcal vaccine <65 (3 of 3 - PCV20 or PCV21) 05/10/2025 05/10/2020, 06/27/2016 Zoster Vaccine Completed 05/10/2020, 11/12, 05/31/2016 Medical Devices Implanted Type Area Engineering Inspector Device Identifier Shelf Expiration Date Model / Serial / Lot [employer] Ventralex St Sepra Sorbaflex 1.7in Byers Open Bioresorbable [id number] - [id number] Implanted:Qty: 1 on 08/22/2022 by Jesús Maria MD at [facility] N/A: Umbilical [employer] 02/08/2024 [id number] / / [id number] Procedures Procedure Name Priority Date/Time Associated Diagnosis Comments EGFR Routine 02/03/2023 2:59 AM CDT from Last 3 Months or Most Recently Relevant to Health Maintenance Results * eGFR (02/03/2023 2:59 AM CDT) eGFR 102 mL/min/1. 73 m2 [facility] Comment: Interpretive Data Reference Interval Normal >/= 90 mL/min/1.73m2 Mildly decreased* 60 - 89 mL/min/1.73m2 Mildly to moderately decreased 45 - 59 mL/min/1.73m2 Moderately to severely decreased 30 - 44 mL/min/1.73m2 Severely decreased 15 - 29 mL/min/1.73m2 Kidney Failure < 15 mL/min/1.73m2 *Relative to young adult level Estimated glomerular filtration rate is determined by the 2020 CKD-EPI equation recommended by the National Kidney Foundation (A Unifying Approach to GFR Estimation: Recommendations of the NKF-ASK Task Force on Reassessing the Inclusion of Race in Diagnosing Kidney Disease, JASN 2020). The CKD-EPI equation should not be used for patients with unstable renal function and has not been validated in children and those over 70. Current interpretive data was last reviewed 2021. Blood 02/03/2023 2:59 AM CDT 02/03/2023 3:36 AM CDT Leander Blanco MD LAB BLOOD ORDERABLES Final Resul t [facility]) [facility] Department [place] [address] from Last 3 Months or Most Recently Relevant to Health Maintenance Insurance [employer] OPEN ACCESS Advance Directives For more information, please contact: [phone] * Full Code (Latest Code Status on File) Date Activated Date Inactivated Comments 02/01/2023 10:40 AM 02/03/2023 5:46 PM * Full Code Date Activated Date Inactivated Comments 01/19/2023 8:03 AM 01/22/2023 5:49 PM Care Teams Roof Designer Relationship Specialty Start Date End Date Grant Brown MD [address] [place] [address] PCP - General Internal Medicine 01/31/23 Grant Brown MD [address] [place] [address] Internal Medicine 01/31/23
[2025-03-25 06:55] VITALS: BP 133/85; PULSE 74; RESP 20; TEMP 36.1; O2SAT 91
[2025-03-25] MEDS: LACTATED RINGERS 1,000 ML 150 ML IV CONT (07:10)
--- NOTE | 2025-03-25 07:16 | WPDANESEPPF ---
Anes - Initial Pre Proc Eval Procedure: Operation Date: 03/25/25 08:30 Proposed Procedures p Screening Colonoscopy - Wale Lao MD Date/Time: 03/25/25 07:16 Surgeon: Wale Lao MD Pre Op Diagnosis: neoplasm screening Patient Data Age: 59 Gender: M Height: 1.7 m Weight: 105.2 kg Last Vital Signs Temp 36.1 C L 03/25/25 06:55 Pulse 74 03/25/25 06:55 Resp 20 03/25/25 06:55 BP 133/85 03/25/25 06:55 Pulse Ox 91 03/25/25 06:55 O2 Del Method Room Air 03/25/25 06:55 Allergies Allergy/AdvReac Type Severity Reaction Status Date / Time Sulfa (Sulfonamide Allergy Mild Hives Verified 03/25/25 06:51 Antibiotics) azithromycin Allergy Diarrhea Verified 03/25/25 06:51 Home Medications ?Medication ?Instructions ?Recorded ?Confirmed ?Type blood-glucose meter #1 ea 07/08/19 03/23/25 Rx multivitamin (Multiple Vitamins 1 tablet PO DAILY 07/08/19 03/25/25 History tablet) cetirizine 10 mg capsule 10 mg PO PRN PRN Allergy Symptoms 01/12/20 03/23/25 History fluticasone propionate 50 2 spray intranasal DAILY PRN 08/16/22 03/23/25 Rx mcg/actuation nasal allergy symptoms #15.8 mL spray,suspension lisinopril 40 mg tablet 40 mg PO DAILY #90 tabs 02/21/24 03/25/25 Rx sertraline 100 mg tablet 150 mg (1.5 x 100 mg) PO DAILY #45 12/01/24 03/25/25 Rx tabs metformin 500 mg tablet See Rx Instructions .Route 12/04/24 03/25/25 Rx .COMPLEX #60 tabs benzonatate 200 mg capsule 200 mg PO TID PRN cough #30 caps 12/22/24 03/23/25 Rx omeprazole 20 mg capsule,delayed See Rx Instructions .Route 01/01/25 03/25/25 Rx release .COMPLEX #90 caps aspirin 325 mg tablet 81 mg PO DAILY 02/02/25 03/25/25 History tramadol 50 mg tablet 100 mg (2 x 50 mg) PO Q6H PRN pain 02/19/25 03/23/25 Rx #100 tabs famotidine 40 mg tablet 40 mg PO DAILY 30 days #30 tabs 03/02/25 03/25/25 Rx tirzepatide 12.5 mg/0.5 mL 12.5 mg (0.5 mL) subcut WEEKLY #2 03/10/25 03/25/25 Rx subcutaneous pen injector mL (Mounjaro) prednisone 2.5 mg tablet 2.5 mg PO DAILY #40 tabs 03/19/25 03/25/25 Rx Laboratory Tests 03/25/25 07:02 POC Capillary Glucose 117 H mg/dl (65-105) Patient hx anesthesia problems: none Family hx anesthesia problems: none Results Review: All pre-operative results and documents have been reviewed as part of the pre-operative evaluation. [facility] Past Medical History Medical History Left ear impacted cerumen Rotator cuff tendonitis Right shoulder pain DJD of left shoulder Effusion of knee joint Bilateral primary osteoarthritis of knee Fatigue Lung nodules ROSA ISELA (obstructive sleep apnea) Type 2 diabetes mellitus Left knee pain Right knee pain Laryngopharyngeal reflux (LPR) Neck mass Bilateral hand pain Right elbow pain Generalized osteoarthritis of multiple sites Rheumatoid arthritis with rheumatoid factor of multiple sites without organ or systems involvement (~2018) Depression GERD (gastroesophageal reflux disease) HTN (hypertension) Surgical History Surgical History History of carpal tunnel release Family History Family History Grandparent Diabetes mellitus Sibling Patient's sister is in good health Patient's brother is , Onset Age: 26 Family history of chronic obstructive pulmonary disease Family history of emphysema Mother Family history of chronic obstructive pulmonary disease, Onset Age: 63 Family history of emphysema, Onset Age: 63 Social History Social History Social History: Caffeine-daily Smoking packs per day: 0.5 Smoking cigarettes per day: 10.0 Years smoked: 23 Smoking pack-years: 11.50 Smoking status: Former smoker Tobacco type: cigarettes Second hand tobacco smoke exposure: No Smoking end date: 08/13/04 Alcohol intake: current Drinks per week: 2 Alcohol use details: one-twice weekly Substance use: never Substance use type: does not use Do You Feel Safe in your Home?: Yes Lack of Transportation: No Lack of Food: Never True Current Housing: I Have Housing Concerned About Future Housing: No Difficulty Paying Gas/Electric Bills: No Difficulty Paying for Meds: No Currently Unemployed: No Education: High School Diploma/GED Difficulty w/ Childcare or Family Care: No Living arrangements: with family Spiritual care concerns: No Anes - Eval Final PreProcedure Day of Procedure 03/25/25 07:16 Patient weight: obese Heart: regular rate and rhythm Lungs: clear to auscultation Airway: Mallampati scale class III Neurological: alert and oriented Last oral intake: >/= 8 hours ASA classification: III Emergent: no Anesthetic plan: proceed Anesthesia type and monitoring: general GIVS and standard monitoring Results Review: All pre-operative results and documents have been reviewed as part of the pre-operative evaluation. Informed Consent: The patient's anesthetic plan and its attendant risks and benefits were discussed with the patient/family/POA. Questions were solicited and answers provided to the satisfaction of the patient/family/POA.
--- NOTE | 2025-03-25 07:55 | PM.IMHP ---
H&P: HPI History of Present Illness Date/Time: 03/25/25 07:55 Chief Complaint: History of colon polyps Narrative: This is the patient's 2nd colonoscopy since 2019.. There are no GI symptoms and there is no family history of colorectal cancer. Review of Systems Review of Systems: All systems reviewed & are unremarkable except as noted in HPI and below PMFSH Past Medical History Medical History Left ear impacted cerumen Rotator cuff tendonitis Right shoulder pain DJD of left shoulder Effusion of knee joint Bilateral primary osteoarthritis of knee Fatigue Lung nodules ROSA ISELA (obstructive sleep apnea) Type 2 diabetes mellitus Left knee pain Right knee pain Laryngopharyngeal reflux (LPR) Neck mass Bilateral hand pain Right elbow pain Generalized osteoarthritis of multiple sites Rheumatoid arthritis with rheumatoid factor of multiple sites without organ or systems involvement (~2018) Depression GERD (gastroesophageal reflux disease) HTN (hypertension) Surgical History Surgical History History of carpal tunnel release Family History Family History Grandparent Diabetes mellitus Sibling Patient's sister is in good health Patient's brother is , Onset Age: 26 Family history of chronic obstructive pulmonary disease Family history of emphysema Mother Family history of chronic obstructive pulmonary disease, Onset Age: 63 Family history of emphysema, Onset Age: 63 Social History Social History Social History: Caffeine-daily Smoking packs per day: 0.5 Smoking cigarettes per day: 10.0 Years smoked: 23 Smoking pack-years: 11.50 Smoking status: Former smoker Tobacco type: cigarettes Second hand tobacco smoke exposure: No Smoking end date: 08/13/04 Alcohol intake: current Drinks per week: 2 Alcohol use details: one-twice weekly Substance use: never Substance use type: does not use Do You Feel Safe in your Home?: Yes Lack of Transportation: No Lack of Food: Never True Current Housing: I Have Housing Concerned About Future Housing: No Difficulty Paying Gas/Electric Bills: No Difficulty Paying for Meds: No Currently Unemployed: No Education: High School Diploma/GED Difficulty w/ Childcare or Family Care: No Living arrangements: with family Spiritual care concerns: No Meds Home Medications and Allergies Home Medications ?Medication ?Instructions ?Recorded ?Confirmed ?Type blood-glucose meter #1 ea 07/08/19 03/23/25 Rx multivitamin (Multiple Vitamins 1 tablet PO DAILY 07/08/19 03/25/25 History tablet) cetirizine 10 mg capsule 10 mg PO PRN PRN Allergy Symptoms 01/12/20 03/23/25 History fluticasone propionate 50 2 spray intranasal DAILY PRN 08/16/22 03/23/25 Rx mcg/actuation nasal allergy symptoms #15.8 mL spray,suspension lisinopril 40 mg tablet 40 mg PO DAILY #90 tabs 02/21/24 03/25/25 Rx sertraline 100 mg tablet 150 mg (1.5 x 100 mg) PO DAILY #45 12/01/24 03/25/25 Rx tabs metformin 500 mg tablet See Rx Instructions .Route 12/04/24 03/25/25 Rx .COMPLEX #60 tabs benzonatate 200 mg capsule 200 mg PO TID PRN cough #30 caps 12/22/24 03/23/25 Rx omeprazole 20 mg capsule,delayed See Rx Instructions .Route 01/01/25 03/25/25 Rx release .COMPLEX #90 caps aspirin 325 mg tablet 81 mg PO DAILY 02/02/25 03/25/25 History tramadol 50 mg tablet 100 mg (2 x 50 mg) PO Q6H PRN pain 02/19/25 03/23/25 Rx #100 tabs famotidine 40 mg tablet 40 mg PO DAILY 30 days #30 tabs 03/02/25 03/25/25 Rx tirzepatide 12.5 mg/0.5 mL 12.5 mg (0.5 mL) subcut WEEKLY #2 03/10/25 03/25/25 Rx subcutaneous pen injector mL (Mounjaro) prednisone 2.5 mg tablet 2.5 mg PO DAILY #40 tabs 03/19/25 03/25/25 Rx Allergies Allergy/AdvReac Type Severity Reaction Status Date / Time Sulfa (Sulfonamide Allergy Mild Hives Verified 03/25/25 06:51 Antibiotics) azithromycin Allergy Diarrhea Verified 03/25/25 06:51 Vital Signs Vital Signs - 24 hr 03/25/25 06:55 Temperature 97 F L Pulse Rate 74 Respiratory Rate 20 Blood Pressure 133/85 Pulse Oximetry 91 Oxygen Delivery Room Air Exam Const: General: cooperative and healthy appearing Resp: Effort & Inspection: normal respiratory effort and able to speak in complete sentences Auscultation: clear to auscultation bilaterally Cardio: Rate: regular rate Rhythm: regular rhythm GI: Inspection: normal to inspection GI Palp: No No hepatosplenomegaly present Auscultation: normal bowel sounds Rectal Exam: deferred Skin: General skin exam: normal color Psych: Appearance: grossly normal Mental Status: mental status grossly normal Assessment and Plan Assessment and plan (1) History of colon polyps: Code(s): Z86.010 - Personal history of colon polyps Status: Acute Assessment and Plan: The patient is deemed a good candidate for the procedure. Consent signed. Will proceed.
--- NOTE | 2025-03-25 08:19 | S_PTH ---
PATIENT: Pro Graves LOC: [facility] U#:[id number] AGE/SX: 59/M ROOM: RE03/25/[address]: Wale Lao MD : 1965 BED: DIS: 03/25/2025 SPEC #: [id number] RECD: 03/25/25 10:37 STATUS: BIA REQ #: [id number] SARA: 03/25/25 08:[address]: Wale Lao DEPT: [facility] Surgical RECD BY: Unique Correia ENTERED: 03/25/25 10:37 SP TYPE: Surgical OTHR DR: Melchor Frazier DO Tissues: A - Colon Polypectomy Procedures: Hematoxylin and Eosin Stain Gross and Microscopic Level 4
[2025-03-25 08:21] VITALS: BP 107/65; PULSE 64; RESP 18; O2SAT 95
[2025-03-25 08:31] VITALS: BP 102/70; PULSE 62; RESP 18; O2SAT 94
[2025-03-25 08:41] VITALS: BP 106/70; PULSE 60; RESP 18; O2SAT 95
== END 2025-03-25 08:51 | disposition home or self-care (01) ==
PROVIDERS: PCP Internal Medicine; Referring Provider Internal Medicine; Visit Provider Internal Medicine Gastroenterology
PROC: 0DJD8ZZ Inspection of Lower Intestinal Tract, Via Natural or Artificial Opening Endoscopic (ICD-10-PCS; CPT 45378; principal; 2025-03-25 08:30)
DX: Z12.11 Encounter for screening for malignant neoplasm of colon (principal); K63.5 Polyp of colon; I10 Essential (primary) hypertension; G47.33 Obstructive sleep apnea (adult) (pediatric); E11.9 Type 2 diabetes mellitus without complications; K21.9 Gastro-esophageal reflux disease without esophagitis; F32.A Depression, unspecified; M19.012 Primary osteoarthritis, left shoulder; M17.0 Bilateral primary osteoarthritis of knee; R53.83 Other fatigue; M05.79 Rheumatoid arthritis with rheumatoid factor of multiple sites without organ or systems involvement; E66.9 Obesity, unspecified; Z68.36 Body mass index [BMI] 36.0-36.9, adult; Z79.84 Long term (current) use of oral hypoglycemic drugs; Z79.82 Long term (current) use of aspirin; Z79.891 Long term (current) use of opiate analgesic; Z79.85 Long-term (current) use of injectable non-insulin antidiabetic drugs; Z79.52 Long term (current) use of systemic steroids; Z98.890 Other specified postprocedural states; Z87.891 Personal history of nicotine dependence
CPT/HCPCS: 45385; 82948; 88305; J2704; J7120

== ENCOUNTER 2025-05-15 07:22 | Outpatient (CLI) | payer OTHER, SELFPAY ==
[2025-05-15 08:32] LABS: Alanine Aminotransferase 14 U/L (6-50); Albumin Level 4.3 g/dL (3.5-5.1); Alkaline Phosphatase 65 U/L (38-126); Anion Gap 10 mmol/L (4-12); Aspartate Amino Transferase 23 U/L (17-59); Bilirubin,Total 0.7 mg/dL (0.2-1.3); Blood Urea Nitrogen 19 mg/dL (9-20); Calcium 9.9 mg/dL (8.4-10.2); Carbon Dioxide 22 mmol/L (22-30); Chloride 103 mmol/L (98-107); Cholesterol 152 mg/dL (0-200); Estimated Glomerular Filt Rate > 60; Glucose 125 mg/dL (65-110); HDL Direct 39 mg/dL; Potassium 4.6 mmol/L (3.4-5.0); Sodium 135 mmol/L (137-145); Total Protein 8.9 g/dL (6.3-8.2); Triglycerides 111 mg/dL (<150)
[2025-05-15 11:50] LABS: Hemoglobin A1C 6.4 % (<5.7)
== END 2025-05-15 07:23 | disposition home or self-care (01) ==
LOC: ANHLAB 07:23
PROVIDERS: PCP Internal Medicine; Visit Provider Internal Medicine
DX: E78.5 Hyperlipidemia, unspecified (principal); I10 Essential (primary) hypertension; E11.65 Type 2 diabetes mellitus with hyperglycemia
CPT/HCPCS: 36415; 80053; 80061; 83036